=== PATIENT | female | born 1950 | race Caucasian/White ===

== ENCOUNTER → 2019-03-25 11:01 | Outpatient (CLI) | payer MEDICARE, SELFPAY ==
--- NOTE | 2019-03-25 11:11 | RAD_ITS ---
STUDY: X-RAY RIGHT FOOT, GREAT TOE REASON FOR EXAM: Female, 68 years old. Pain following injury. TECHNIQUE: 3 view(s) of the toe were obtained. COMPARISON: None. FINDINGS: Normal visualized metatarsus. There is arthrosis of the metatarsophalangeal (M.T.P.) joint. Normal interphalangeal joints. Normal phalanges and interphalangeal joints. Soft tissue swelling. RAD/Toe(s) Min 2 Views IMPRESSION: Soft tissue swelling. Electronically Signed: Alvaro López, at 12:28 EDT , Service support ,
== END ==
PROVIDERS: Family Provider Family Medicine; PCP Family Medicine; Referring Provider Family Medicine; Visit Provider Family Medicine
DX: S90.111A Contusion of right great toe without damage to nail, initial encounter (principal); X58.XXXA Exposure to other specified factors, initial encounter; Y93.9 Activity, unspecified; Y92.9 Unspecified place or not applicable; Y99.9 Unspecified external cause status
CPT/HCPCS: 73660

== ENCOUNTER → 2019-04-12 | Outpatient (CLI) | payer MEDICARE, SELFPAY ==
[2019-04-12 12:29] LABS: Erythrocyte Sedimentation Rate 17 mm/hr (0-30)
[2019-04-12 12:30] LABS: Absolute Lymphocyte Count 1.74 X10^3/uL (0.83-4.51); Basophil# 0.04 X10^3/uL; Basophil% 0.7 % (0-1); Eosinophil# 0.22 X10^3/uL; Eosinophils% 3.9 % (0-5); Hematocrit 44.9 % (37-47); Hemoglobin 14.6 g/dL (12.0-15.0); Lymphocyte # 1.74 X10^3/ul (4.0); Lymphocyte % 31.2 % (19-41); Mean Corp Hgb Conc 32.5 g/dL (32-36); Mean Corpuscular Hgb 27.8 pg (27.0-32.0); Mean Corpuscular Volume 85.4 fL (81-99); Mean Platelet Vol. 9.5 fl (6.2-12.0); Monocyte# 0.59 X10^3/uL; Monocyte% 10.6 % (0-10); NRBC Flagged by Analyzer 0 % (0-5); Neutrophil # 2.97 X10^3/uL (2.7-7.7); Neutrophil % 53.4 % (47-70); Platelet Count 222 K/mm3 (150-450); RBC Distribution Width CV 13.2 % (11.6-14.6); RBC Distribution Width SD 41.1 fl (35.1-43.9); Red Blood Count 5.26 M/mm3 (4.2-5.4); White Blood Count 5.6 K/mm3 (4.4-11.0)
[2019-04-12 14:50] LABS: ALB/GLOB Ratio 0.9 RATIO (0.9-2.4); AST(SGOT) 25 U/L (15-37); Alanine Aminotransfer ALT/SGPT 39 U/L (13-56); Albumin, Serum 3.5 g/dL (3.2-5.0); Alkaline Phosphatase 110 U/L (45-117); Anion Gap 8 (5-15); BUN 11 mg/dL (7-18); BUN/Creat Ratio 15.1 RATIO (10-20); Chloride 105 mmol/L (98-107); Creatinine, Serum 0.73 mg/dL (0.55-1.02); EST Glomerular Filtration Rate 85 mL/min (>60); Est Glom Filt Rate - Afr Amer 103 mL/min (>60); Globulin 3.7 g/dL (2.2-4.2); Glucose 82 mg/dL (74-106); Protein, Total 7.2 g/dL (6.4-8.2); Rheumatoid Factor < 10.0 IU/mL (<15); Sodium Level 141 mmol/L (136-145); T4 Free Direct 1.06 ng/dL (0.76-1.46)
[2019-04-12 16:15] LABS: Potassium 2.7 mmol/L (3.5-5.1)
[2019-04-13 08:45] LABS: Vitamin B12 395 pg/mL (211-911); Vitamin D,25 Hydroxy 10.2 ng/mL (29.95-100.01)
[2019-04-17 04:11] LABS: HEPATITIS B SURFACE AG Negative (Negative); Hepatitis A AB, Total Negative (Negative); Hepatitis A IgM Antibody Negative (Negative); Hepatitis B Core AB IgM Negative (Negative); Hepatitis B Core Ab Total Negative (Negative); Hepatitis C Ab <0.1 s/co ratio (0.0-0.9); Lyme IgG P18 Ab Present (.); Lyme IgG P23 Ab Present (.); Lyme IgG P28 Ab Absent (.); Lyme IgG P30 Ab Absent (.); Lyme IgG P39 Ab Absent (.); Lyme IgG P41 Ab Absent (.); Lyme IgG P45 Ab Absent (.); Lyme IgG P58 Ab Absent (.); Lyme IgG P66 Ab Absent (.); Lyme IgG P93 Ab Present (.); Lyme IgM P23 Ab Absent (.); Lyme IgM P39 Ab Absent (.); Lyme IgM P41 Ab Absent (.); PROEL- A/G Ratio 1.1 (0.7-1.7); PROEL- Albumin 3.7 g/dL (2.9-4.4); PROEL- Alpha-1 Globulin 0.2 g/dL (0.0-0.4); PROEL- Alpha-2 Globulin 0.9 g/dL (0.4-1.0); PROEL- Beta Globulin 1.3 g/dL (0.7-1.3); PROEL- Gamma Globulin 0.9 g/dL (0.4-1.8); PROEL- Globulin, Total 3.3 g/dL (2.2-3.9)
[2019-04-17 12:21] LABS: Hep B Surface Antibodies Non Reactive (.)
[2019-04-17 12:22] LABS: Lyme IgG WB Interpretation Negative (.); Lyme IgM WB Interpretation Negative (.)
[2019-04-17 13:03] LABS: ANTINUCLEAR ANTIBODIES DIRECT Positive (Negative)
== END | disposition home or self-care (01) ==
PROVIDERS: Family Provider Family Medicine; PCP Family Medicine
DX: R41.3 Other amnesia (principal); F41.9 Anxiety disorder, unspecified; M25.50 Pain in unspecified joint; R53.83 Other fatigue; E55.9 Vitamin D deficiency, unspecified; I10 Essential (primary) hypertension
CPT/HCPCS: 36415; 80053; 82306; 82607; 82746; 84165; 84439; 84443; 85025; 85652; 86038; 86225; 86235; 86431; 86617; 86704; 86705; 86706; 86708; 86709; 86803; 87340

== ENCOUNTER → 2019-04-29 | Outpatient (CLI) | payer MEDICARE, SELFPAY ==
[2019-04-29 14:05] LABS: Anion Gap 8 (5-15); BUN 12 mg/dL (7-18); BUN/Creat Ratio 14.4 RATIO (10-20); Calcium,Total 8.9 mg/dL (8.5-10.1); Chloride 103 mmol/L (98-107); Creatinine, Serum 0.83 mg/dL (0.55-1.02); EST Glomerular Filtration Rate 73 mL/min (>60); Est Glom Filt Rate - Afr Amer 88 mL/min (>60); Glucose 120 mg/dL (74-106); Potassium 2.8 mmol/L (3.5-5.1); Sodium Level 141 mmol/L (136-145)
[2019-04-30 15:54] LABS: ANTINUCLEAR ANTIBODIES DIRECT Positive (Negative)
== END | disposition home or self-care (01) ==
PROVIDERS: Family Provider Family Medicine; PCP Family Medicine
DX: E87.6 Hypokalemia (principal); R76.8 Other specified abnormal immunological findings in serum
CPT/HCPCS: 36415; 80048; 86038

== ENCOUNTER 2020-01-17 09:12 | Outpatient (RCR) | payer MEDICARE, SELFPAY ==
--- NOTE | 2020-04-01 14:26 | HP.OT.NRP ---
MARC LEE was seen in my office for initial evaluation on 01/17/20. The following Plan of Care was established for this patient: Anticipated Interventions: Education re Diagnosis, Education re Life-long lymphedema Management, Education re Skin Care and Precautions, Education re Correct Donning Tech,Care&Wearing Sched Comp Garments, Caregiver Training, Home Program This patient was last seen in our office 01/17/20. Pertinent comments regarding their Occupational therapy will appear below: Pt was seen for intial OT eval and was given HEP that pt and agreed with POC. At this point I will be discontinuing this patient from occupational therapy. I would be happy to see this patient again in the future if found appropriate by the physician. Thank you! Darline Arizmendi, OTR/L, CHT
--- NOTE | 2020-04-01 14:26 | HP.OTEVAL ---
Patient's Visit Information MARC LEE is a 69 year old F, referred to Occupational Therapy by Dr. Isaias Lizarraga MD, with a diagnosis of left LE lymphedmea. Date of Evaluation: 01/17/20 Occupational Therapist: Darline Arizmendi, SOHAM/Jhonny, CHT - Subjective This 69 year old female was seen for OT eval with dx of left LE lymphdema. states about a month ago pt got a staff infection and her leg. pt still on antibiotics. pt has tried compression socks in the past but painful to get on and difficult to find size that fits her. pt and spouse would like to find something that will assist with swelling. - Lymphedema (Circumferential Measure) Mid-foot: right 21cm left 22cm Ankle: right 25cm left 26cm Lower calf: right 31cm left 32cm Largest calf: right 38mc left 40cm Below knee: right 39cm left 41cm - Lower Limb Functional Index Lower Extremity Functional Score: 66 - Goals Demonstrate a 20% reduction in edema by d/c: Yes Demonstrate adequate knowledge skin care/prec by 2nd week: Yes Demonstrate adequate knowledge therapeutic exercises by d/c: Yes Select approp compression garment w/donning/care/wear by d/c: Yes Voice need to replace compression garment every 4-6mo by dc: Yes - Rehabilitation General Assessment: pt demo with LE edema, dry skin and thickend skin tissue. Pt demo a decrease understanding of compression garmet use and mtg of edema. Today therapist ed. pt and spouse on the lymphatic system and why use of compression is needed to assist in LE edema mtg. Due to painful LE when they attempt to put compression socks on. Therapist ed. pt on medical grade compression socks and brands that come in full calf sizes to assist with easy donning/doffing. therapist also ed. pt on use of velcro closure devices as this would decrease pain with donning/doffing pt receptive but not sure she would like the thickness of the velcro closure devices. therapist ed. pt and spouse that [facility] could not order the garments for pt as the hospital is not a DME supplier. Pt and spouse demo understanding to use [employer], [employer] etc. for purchases. Pt agreed to allow therapist to colleen the compression socks she brought with her with use of rubber gloves. pt able to tolerate donning but was tender arond mid calf. once garment was in place there was no reported pain. therapist ed. pt and on beneficial lymph exercies and was given handouts. pt and spouse demo understanding and agree to HEP. unless pt has questions/concerns with compression devices. Rehabilitation Potential: Fair - Anticipated Interventions Education re Diagnosis, Education re Life-long lymphedema Management, Education re Skin Care and Precautions, Education re Correct Donning Tech,Care&Wearing Sched Comp Garments, Caregiver Training, Home Program - Visit Plan TEXT: Thank you for the opportunity to evaluate your patient. For Medicare and Medicare HMO plans, please review the plan of care and approve it. It will need to be FAXED BACK to us at [phone] for Medicare purposes. Please let me know if there are questions or concerns regarding this plan of care. Physician Signature: Date:
== END 2020-01-17 19:00 | disposition home or self-care (01) ==
LOC: OT 09:12
PROVIDERS: PCP Family Medicine; Referring Provider Family Medicine; Visit Provider Family Medicine
DX: I89.0 Lymphedema, not elsewhere classified (principal)
CPT/HCPCS: 97166

== ENCOUNTER → 2020-01-21 | Outpatient (CLI) | payer MEDICARE, SELFPAY ==
--- NOTE | 2020-01-21 10:55 | US_ITS ---
STUDY: SUPERFICIAL ULTRASOUND - PAIN AND SWELLING REASON FOR EXAM: Female, 69 years old. LOWER LEFT LEG EDEMA REDNESS -- LYMPHEDEMA TECHNIQUE: A superficial ultrasound was performed with real-time and static gtz-scale imaging. COMPARISON: None. FINDINGS: Sonographic evaluation of the lower extremity shows subcutaneous edema. There are multiple hypoechoic areas within the subcutaneous fat which likely represent seromas or trapped edema. Largest measures 2.4 x 4.3 x 0.8 cm. No hyperemia to suspect inflammation. US/Ext Non Vasc Limited/Soft Tiss IMPRESSION: Diffuse skin thickening and subcutaneous edema with isolated hypoechoic pockets of fluid within the subcutaneous. Likely seromas or trapped edema Electronically Signed: Avinash Berg MD at 11:44 EDT , Service support ,
== END | disposition home or self-care (01) ==
LOC: US 10:52
PROVIDERS: PCP Family Medicine; Referring Provider Family Medicine; Visit Provider Family Medicine
DX: I89.0 Lymphedema, not elsewhere classified (principal)
CPT/HCPCS: 76882

== ENCOUNTER → 2021-01-05 12:20 | Outpatient (CLI) | payer MEDICARE, SELFPAY ==
[2021-01-05 14:57] LABS: Absolute Lymphocyte Count 0.96 X10^3/uL (0.83-4.51); Absolute Neutrophil Count 4.1 X10^3/uL (2.0-7.7); Basophil# 0.02 X10^3/uL; Basophil% 0.3 % (0-1); Eosinophils% 1.7 % (0-5); Hematocrit 41.7 % (37-47); Hemoglobin 13.3 g/dL (12.0-15.0); Lymphocyte # 0.96 X10^3/ul (0.83-4.51); Lymphocyte % 16.8 % (19-41); Mean Corp Hgb Conc 31.9 g/dL (32-36); Mean Corpuscular Hgb 27.4 pg (27.0-32.0); Mean Corpuscular Volume 85.8 fL (81-99); Mean Platelet Vol. 9.7 fl (6.2-12.0); Monocyte# 0.53 X10^3/uL; Monocyte% 9.2 % (0-10); NRBC Flagged by Analyzer 0 % (0-5); Neutrophil # 4.11 X10^3/uL (2.7-7.7); Neutrophil % 71.8 % (47-70); Platelet Count 237 K/mm3 (150-450); RBC Distribution Width CV 13.4 % (11.6-14.6); RBC Distribution Width SD 42.2 fl (35.1-43.9); Red Blood Count 4.86 M/mm3 (4.2-5.4); White Blood Count 5.7 K/mm3 (4.4-11.0)
[2021-01-05 15:42] LABS: ALB/GLOB Ratio 0.9 RATIO (0.9-2.4); AST(SGOT) 12 U/L (15-37); Alanine Aminotransfer ALT/SGPT 16 U/L (13-56); Albumin, Serum 3.4 g/dL (3.2-5.0); Alkaline Phosphatase 129 U/L (45-117); Anion Gap 6 (5-15); BUN 14 mg/dL (7-18); BUN/Creat Ratio 16.5 RATIO (10-20); Calcium,Total 9.4 mg/dL (8.5-10.1); Chloride 105 mmol/L (98-107); Creatinine, Serum 0.85 mg/dL (0.55-1.02); EST Glomerular Filtration Rate 71 mL/min (>60); Est Glom Filt Rate - Afr Amer 86 mL/min (>60); Globulin 3.7 g/dL (2.2-4.2); Glucose 103 mg/dL (74-106); Potassium 2.8 mmol/L (3.5-5.1); Prealbumin 21.3 mg/dL (20.0-40.0); Protein, Total 7.1 g/dL (6.4-8.2); Sodium Level 141 mmol/L (136-145)
== END ==
PROVIDERS: PCP Family Medicine; Referring Provider Family Medicine; Visit Provider Family Medicine
DX: R63.4 Abnormal weight loss (principal)
CPT/HCPCS: 36415; 80053; 84134; 84443; 85025

== ENCOUNTER → 2021-01-14 11:08 | Outpatient (CLI) | payer MEDICARE, SELFPAY | PROVIDERS: PCP Family Medicine; Referring Provider Family Medicine; Visit Provider Family Medicine | DX: E87.6 Hypokalemia (principal) | CPT/HCPCS: 36415; 84132 ==

== ENCOUNTER 2021-02-11 18:17 | Emergency (ER) | payer MEDICARE, MEDICAID, SELFPAY ==
[2021-02-11] VITALS (7 sets, daily range): BP systolic 90–100; BP diastolic 47–61; PULSE 99–107; RESP 16–18; TEMP 37.1; O2SAT 86–97; BMI 31.2
--- NOTE | 2021-02-11 20:30 | EX.ED.DYSGE1 ---
HPI History of Present Illness Chief Complaint: Alt LOC Detail of Chief Complaint: Agitation Informant: family Narrative Narrative: Patient brought to the emergency department from inpatient hospice for increased agitation. Patient has history of dementia and has been progressively more agitated over the course of the last month. Hospice was called in 2 days ago and evaluated her in the took her to the inpatient facility where she became extremely agitated and they could not control her even with medication so they brought her to the emergency department. Daughter states that normally she is otherwise relatively healthy. Patient has not been ill recently. Patient cannot give me any history the history comes from the patient's daughter. Prior similar symptoms: Yes PFSH PFS Medical History (Updated 02/11/21 @ 23:[address] Norma Mason, DO) Anxiety Dementia Depression Mute Non-smoker Skin cancer Allergy/AdvReac Type Severity Reaction Status Date / Time Penicillins [PCN] Allergy NEEDS Verified 02/11/21 18:19 FOLLOW-UP Surgical History (Updated 02/11/21 @ 19:00 by Austin Dooley) History of hysterectomy Status post rotator cuff repair Social History Smoking Status: Never smoker ROS ROS ED ROS Narrative Agitation and combativeness Constitutional Constitutional ED: Reports systems reviewed and no addt'l complaints, except as documented; Denies body ache(s), change in weight or chills Eyes Eyes: Denies acute decrease in peripheral vision, change in vision, double vision or loss of vision ENT ENT ED: Reports none; Denies ear pain, lip swelling, loss taste/smell, neck pain, otalgia or sore throat Cardiovascular Cardiovascular: Reports none; Denies abdominal pain, chest pain with activity, leg edema, lightheadedness, palpitations, rapid heart rate or syncope Respiratory/Chest Respiratory/Chest: Reports none; Denies change in mental status, dry cough, dyspnea, hemoptysis, shortness of breath at rest or shortness of breath with exertion Gastrointestinal Gastrointestinal: Reports none; Denies abdominal pain, change in stool character, diarrhea, hematemesis, hematochezia, melena, rectal bleeding or vomiting Genitourinary Genitourinary ED: Reports none; Denies abdominal discomfort, anuria, dysuria, genital pain or polyuria Musculoskeletal Musculoskeletal: Reports none; Denies arthralgias, back pain, difficulty walking, extremity pain, muscle weakness or myalgias Integumentary Reports none; Denies abscess or rash Neurologic Neurologic: Reports none; Denies abnormal gait, confusion, focal weakness, frequent falls, headache(s), loss of vision, numbness, paresthesias, radicular pain, vertigo or weakness Psychiatric Psychiatric: Reports systems reviewed and no addt'l complaints, except as documented and none; Denies behavioral changes, confusion, difficulty concentrating, hallucinations, suicidal ideation, tactile hallucinations or visual hallucinations Endocrine Endocrinology: Denies none, cold intolerance, excessive sweating, fatigue or heat intolerance Hematologic/Lymphatic Hematologic/Lymphatic: Reports none; Denies anemia, easy bleeding or easy bruising Allergic/Immunologic Allergic/Immunologic ED: Denies as per HPI, none, lip swelling, mouth swelling, throat swelling, tongue swelling or hives EXAM Physical Exam Const Vital Signs: 02/11/21 18:19 02/11/21 18:21 02/11/21 21:58 Temperature 98.8 F Temperature Source Axillary Pulse Rate 107 H 106 H 103 H Respiratory Rate 16 16 17 Blood Pressure 90/47 L 90/47 L 98/51 L Blood Pressure Mean 61 61 66 Pulse Ox 94 97 90 Oxygen Delivery Method Room Air Nasal Cannula Room Air Oxygen Flow Rate (L/min) 4 02/11/21 22:33 02/11/21 22:40 02/11/21 22:45 Temperature Temperature Source Pulse Rate 99 Respiratory Rate 18 Blood Pressure 98/61 Blood Pressure Mean 73 Pulse Ox 90 86 95 Oxygen Delivery Method Room Air Room Air Nasal Cannula Oxygen Flow Rate (L/min) 2 02/11/21 23:14 Temperature Temperature Source Pulse Rate 102 H Respiratory Rate 18 Blood Pressure 100/54 L Blood Pressure Mean 69 Pulse Ox 94 Oxygen Delivery Method Nasal Cannula Oxygen Flow Rate (L/min) 2 Positive well nourished and well developed General Appearance ED: well developed and NAD HEENT Reports TM's clear and moist mucous membranes normocephalic and atraumatic; Negative for trauma or tenderness Tympanic Membrane ED: Yes TM's clear Eyes PERRL and EOMs intact bilaterally General Eye ED: Negative for pale conjunctiva or scleral icterus Neck no lymphadenopathy, supple and no JVD General: Negative for tenderness Chest Wall inspection of chest normal and palpation of chest normal Chest: Negative for tenderness Resp normal respiratory effort and clear to auscultation bilaterally Effort and Inspection: Negative for respiratory distress or pain with movement Auscultation: Negative for rhonchi, wheezes or diminished lung sounds Cardio regular rate, regular rhythm, S1 normal heart sound, S2 normal heart sound and no murmurs Peripheral Pulses: pulses 2+ throughout GI normal to inspection, nondistended, normoactive bowel sounds, soft to palpation, non-tender, non-distended and no masses Back/Spine no CVA tenderness and no thoracic nor lumbar tenderness Extremity normal to inspection General Extremety ED: Negative for edema General Extremity: Negative for edema Neuro oriented x3, CN's II-XII intact bilaterally, no sensory deficits noted and gait normal Sensorium / Orientation: awake, alert, oriented to person, oriented to place and oriented to time Motor Exam: strength 5/5 throughout and strength abnormal Psych mental status grossly normal Psych Narrative: Patient becomes very agitated and combative when I attempt to evaluate her. Skin no rashes or lesions noted and no wounds MDM MDM MDM Narrative Medical decision making narrative: Patient noted to have an elevated troponin however her EKG does not show evidence of acute [place]. Patient does have sinus tachycardia with with first-degree AV block. I discussed results with patient's daughter and patient does have a DNR and they only want comfort measures for her and would not want her to have any type of cardiac intervention. We will discussed with crisis to evaluate for placement to [facility] psych facility. Patient had to be medicated in department with Geodon as well as Ativan because of the high level of agitation. Lab Data Attestation: I reviewed the patient's lab results. Labs: Laboratory Results - last 24 hr 02/11/21 02/11/21 02/11/21 21:50 21:50 22:20 WBC 7.0 RBC 4.02 L Hgb 11.3 L Hct 35.7 L MCV 88.8 MCH 28.1 MCHC 31.7 L RDW Std Deviation 45.0 H RDW Coeff of Marge 14.0 Plt Count 182 MPV 10.0 Immature Gran % (Auto) 0.400 Neut % (Auto) 70.6 H Lymph % (Auto) 16.4 L [place] % (Auto) 9.9 Eos % (Auto) 2.4 Baso % (Auto) 0.3 Absolute Neuts (auto) 4.9 Absolute Lymphs (auto) 1.14 Nucleated RBC % 0 Platelet Estimate ADEQUATE Plt Morphology Comment LARGE RBC Morphology N CHROM Anisocytosis RARE Sodium 145 Potassium 3.3 L Chloride 112 H Carbon Dioxide 27.0 Anion Gap 6 BUN 14 Creatinine 0.87 Estim Creat Clear Calc 57.94 Est GFR (MDRD) Af Amer 83 Est GFR (MDRD) Non-Af 69 BUN/Creatinine Ratio 16.1 Glucose 91 Calcium 8.0 L Total Bilirubin 0.40 AST 21 ALT 21 Alkaline Phosphatase 115 Troponin I High Sens 269.7 H* Total Protein 5.4 L Albumin 2.6 L Globulin 2.8 Albumin/Globulin Ratio 0.9 Urine Color Yellow Urine Clarity Clear Urine pH 6.0 Ur Specific [place] 1.020 Urine Protein Negative Urine Glucose (UA) Normal Urine Ketones Negative Urine Occult Blood Negative Urine Nitrite Negative Urine Bilirubin Negative Urine Urobilinogen 1 H Ur Leukocyte Esterase Negative Urine RBC 0 SEEN Urine WBC 0-5 SEEN Ur Squamous Epith Cells 0 SEEN Urine Bacteria 0 SEEN Urine Mucus 0 SEEN Radiography Diagnostic Testing: Radiology Impression Brain CT 02/11/21 20:34 IMPRESSION: 1. No acute findings. 2. Microvascular ischemic changes. Atrophy. Electronically Signed: Janett Guillen MD at 22:29 EDT Tel , Service support , EKG Initial EKG: Attestation: I personally reviewed and interpreted this EKG as follows: Comments: Sinus rhythm with a ventricular rate of 101 bpm with first-degree AV block Prior EKG tracings: not available for review Discharge Plan Triage Chief Complaint: Alt LOC ED Provider: Norma Mason Dx/Rx/DC Orders Clinical Impression: Dementia, Agitation, Non-ST elevated myocardial infarction Primary Care Provider: Isaias Lizarraga Referrals: Isaias Lizarraga MD [Primary Care Provider] -
--- NOTE | 2021-02-11 20:34 | CT_ITS ---
STUDY: CT BRAIN WITHOUT CONTRAST REASON FOR EXAM: Female, 70 years old. mental status change RADIATION DOSAGE (If Supplied By Facility): CTDIvol = ( 44.99 ) mGy, DLP = ( 812.98 ) mGycm TECHNIQUE: Transaxial CT imaging of the brain was performed without administration of intravenous contrast material. Individualized dose optimization techniques were used for this CT. COMPARISON: No relevant priors. FINDINGS: Normal soft tissue structures. Normal calvarium. There is moderate cerebral atrophy with widening of the extra-axial spaces and ventricular dilatation. There are areas of decreased attenuation within the white matter tracts of the supratentorial brain, consistent with microvascular disease changes. Normal basal ganglia and thalami. Normal brainstem. Normal cerebellum. There is no intracranial hemorrhage. There are no findings of an acute ischemic infarction. Retention cyst in the maxillary sinuses bilaterally. Sinuses are otherwise clear. CT/Brain/Head without Contrast IMPRESSION: 1. No acute findings. 2. Microvascular ischemic changes. Atrophy. Electronically Signed: Janett Guillen MD at 22:29 EDT Tel , Service support ,
--- NOTE | 2021-02-11 20:35 | EKG12_ITS ---
Test Reason : DYSRHYTHMIA Blood Pressure : / mmHG Vent. Rate : 101 BPM Atrial Rate : 101 BPM P-R Int : 214 ms QRS Dur : 108 ms QT Int : 368 ms P-R-T Axes : 045 000 049 degrees QTc Int : 477 ms Sinus tachycardia with 1st degree A-V block Otherwise normal ECG Confirmed by SLADE BAUER, PATSY ([id number]), acquisition editor YASIR ZUÑIGA ([id number]) on 02/15/2021 9:55:41 AM Referred By: BRADLEY Confirmed By:MILADY JUNE MD
[2021-02-11] MEDS: LORazepam 2 MG/ML Syringe 1 MG IM (20:44)
[2021-02-11] MEDS: Ziprasidone IM 20 MG/ML VIAL IM (20:58)
[2021-02-11 22:29] LABS: Bacteria 0 SEEN /hpf (None Seen); Mucous, Urine 0 SEEN /hpf (<or=2+); Red Blood Cells-Urine 0 SEEN /hpf (0-5); Squamous Epithelial Cells - UA 0 SEEN /hpf (5-10)
[2021-02-11 22:31] LABS: Color, Urine Yellow (Yellow); Glucose, Dipstick Normal (Normal); Ketone-Dipstick Negative (Negative); Leukocyte Esterase-Dipstick Negative /ul (Negative); Nitrite-Dipstick Negative (Negative); Occult Blood-Urine Negative /ul (Negative); Protein-Dipstick Negative (Negative); Urine Bilirubin Dipstick Negative (Negative); Urine Clarity Clear (Clear); Urine Urobilinogen 1 mg/dl (Normal)
[2021-02-11 22:33] LABS: Absolute Lymphocyte Count 1.14 X10^3/uL (0.83-4.51); Absolute Neutrophil Count 4.9 X10^3/uL (2.0-7.7); Basophil# 0.02 X10^3/uL; Basophil% 0.3 % (0-1); Eosinophil# 0.17 X10^3/uL; Eosinophils% 2.4 % (0-5); Hematocrit 35.7 % (37-47); Hemoglobin 11.3 g/dL (12.0-15.0); Lymphocyte # 1.14 X10^3/ul (0.83-4.51); Lymphocyte % 16.4 % (19-41); Mean Corp Hgb Conc 31.7 g/dL (32-36); Mean Corpuscular Hgb 28.1 pg (27.0-32.0); Mean Corpuscular Volume 88.8 fL (81-99); Monocyte# 0.69 X10^3/uL; Monocyte% 9.9 % (0-10); NRBC Flagged by Analyzer 0 % (0-5); Neutrophil # 4.91 X10^3/uL (2.7-7.7); Neutrophil % 70.6 % (47-70); POSITIVE COUNT YES; Platelet Count 182 K/mm3 (150-450); Red Blood Count 4.02 M/mm3 (4.2-5.4)
[2021-02-11 22:38] LABS: White Blood Cells 0-5 SEEN /hpf (0-5)
[2021-02-11 22:49] LABS: ALB/GLOB Ratio 0.9 RATIO (0.9-2.4); AST(SGOT) 21 U/L (15-37); Alanine Aminotransfer ALT/SGPT 21 U/L (13-56); Albumin, Serum 2.6 g/dL (3.2-5.0); Alkaline Phosphatase 115 U/L (45-117); Anion Gap 6 (5-15); BUN 14 mg/dL (7-18); BUN/Creat Ratio 16.1 RATIO (10-20); Chloride 112 mmol/L (98-107); Creatinine, Serum 0.87 mg/dL (0.55-1.02); EST Glomerular Filtration Rate 69 mL/min (>60); Est Glom Filt Rate - Afr Amer 83 mL/min (>60); Estimated Creatinine Clearance 57.94 ml/min; Globulin 2.8 g/dL (2.2-4.2); Glucose 91 mg/dL (74-106); Potassium 3.3 mmol/L (3.5-5.1); Protein, Total 5.4 g/dL (6.4-8.2); Sodium Level 145 mmol/L (136-145); Troponin-I HS 269.7 pg/mL (3.0-53.7)
[2021-02-11 22:55] LABS: Differential Indicated SCAN CRITERIA MET
[2021-02-11 22:56] LABS: Anisocytosis RARE; Platelet Estimate ADEQUATE (ADEQ); Platelet Morphology LARGE; Red Cell Morphology N CHROM NORMAL (NORM C&C)
[2021-02-12] VITALS (14 sets, daily range): BP systolic 90–145; BP diastolic 47–79; PULSE 58–104; RESP 14–27; O2SAT 94–99
[2021-02-12] MEDS: Haloperidol Lactate 5 MG/ML Vial 2 MG IM ×2 (01:39→09:12)
[2021-02-12] MEDS: Midazolam 2 MG/2 ML Syringe IM ×2 (01:39→09:11)
--- NOTE | 2021-02-12 04:55 | ED.RN ---
PENDING AT GENERATIONS. A LOT OF PLACES HAVE DECLINED
--- NOTE | 2021-02-12 09:05 | ED.RN ---
SPOKE WITH RUTHIE AT [facility] SHE WORKS ON THEIR U. SHE REQUESTED US FAX INFORMATION TO THEM FOR REVIEW. FAXED AT [phone]
--- NOTE | 2021-02-12 09:15 | ED.RN ---
AT APPROX 0800 PT AWAKE, THIS RN OFFERED PT BREAKFAST, HOLDING JUICE AND MILK TO PT MOUTH BUT PT REFUSES TO EAT. PT SITTING IN BED. FOOD OFFERED BY THIS RN, BUT PT REFUSING TO EAT, EVEN WITH NURSES ASSISTANCE. AT APPROX 0900 PT WITH INCREASING AGITATION. PT PULLING AT GOWN, AND DEPENDS. 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 PT SHOUTING UNINTELLIGABLE SPEECH. REFUSES TO FOLLOW COMMANDS. PT TRYING TO GRAB AT STAFF, PULLING THIS RN SHIRT. DR. SPENCER AT BEDSIDE TO SEE PT. MEDICATIONS ORDERED. PT REMAINS IN THE BED SHOUTING AND PULLING AT STAFF.
[2021-02-12] MEDS: Ziprasidone IM 20 MG/ML VIAL IM (09:44)
--- NOTE | 2021-02-12 10:15 | ED.RN ---
PT CONTINES TO BE AGITATED, SCREAMING, AND SHOUTING. PT DOES NOT FOLLOW BASIC COMMANDS. GEODON GIVEN. PT CONTINUES TO PICK AT HER GOWN AND BLANKETS. DR. PURVIS INFORMED. UNABLE TO GIVEN PT DAILY MEDICATIONS, OR OBTAIN VS AT THIS TIME. RESPIRES EVEN, AND UNLABORED.
--- NOTE | 2021-02-12 10:32 | CM.ED ---
SOCIAL WORK Call to Crisis to discuss status of placement. Edith reports referral was made to [facility]. This worker to assist with placement. Call to [facility], spoke with Day. Reviewed patient's case and informed Hospice has been revoked. Day reports will review referral. Referral faxed at this time. Allie Sow MSW, CLOTHER IN
[2021-02-12] MEDS: LORazepam 2 MG/ML Syringe IM (10:38)
--- NOTE | 2021-02-12 10:55 | ED.RN ---
PT CONTINUES TO SCREAM AND SHOUT. PT REMIANS SITTING IN HER BED SITTING UP, PICKING AT HER BLANKETS AND GOWN. PT SCREAMS WHEN STIMULATED, GRABBING AT THIS RN AND OTHER RNS WHEN ADMINISTERING IM MEDICATIONS. PT AGITATED REFUSING TO TAKE DAILY ORAL MEDS. DR. PURVIS AWARE.
--- NOTE | 2021-02-12 12:15 | CM.ED ---
SOCIAL WORK Facilitated phone call from [facility] lithographic general worker, Day to daughter. All questions answered at this time. Pending acceptance at this time. Allie Sow, SURVEYOR GEODETIC, DIRECTOR OF HOME CARE HOSPICE
--- NOTE | 2021-02-12 12:46 | CM.ED ---
SOCIAL WORK Patient accepted by Dr. Cardozo to [facility]. Nurse to call report to [phone]. Day with [facility] arranged transportation for a 2pm hand picker. Staff and patient's daughter ivan. Allie Sow, EYE SPECIALIST, OVERHAULER BUS TRUCK
== END 2021-02-12 14:32 ==
PROVIDERS: Emergency Medicine; Emergency Provider Student in an Organized Health Care Education/Training Program; PCP Family Medicine
DX: F03.91 Unspecified dementia, unspecified severity, with behavioral disturbance (principal); R45.1 Restlessness and agitation; I21.4 Non-ST elevation (NSTEMI) myocardial infarction; Z66 Do not resuscitate
CPT/HCPCS: 70450; 80053; 81001; 84484; 85025; 87426; 93005; 96372; 99285; P9612; A4216; J3486